=== PATIENT | female | born 1995 | race Two or more races ===

== ENCOUNTER 2020-01-17 23:57 | Emergency (ER) | payer MEDICAID ==
[~2020-01-17] VITALS: Ht 170.2 cm; Wt 112.5 kg
[2020-01-18 00:17] VITALS: BP 149/87
== END 2020-01-18 08:39 | disposition left against medical advice (07) ==
LOC: ER 01-18 00:06
DX: B07.8 Other viral warts (principal); Z53.21 Procedure and treatment not carried out due to patient leaving prior to being seen by health care provider

== ENCOUNTER → 2020-04-21 | Emergency (ER) | payer MEDICAID | END | disposition left against medical advice (07) | LOC: ER 21:10 | DX: R51 Headache (principal) ==